=== PATIENT | female | born 1935 | race Caucasian/White ===

== ENCOUNTER 2017-03-16 12:51 | Emergency (ER) | payer MEDICARE ==
[2017-03-16] MEDS ORDERED: NORMAL SALINE 1000 ML 1,000 ML IV ONE (13:18)
[2017-03-16] MEDS ORDERED: ASPIRIN 81 MG TABLET, CHEWABLE PO ONE (13:20)
[2017-03-16] MEDS ORDERED: METOPROLOL TARTRATE PF/INJ 5 MG/5 ML SDV IV ONE (13:21)
--- NOTE | 2017-03-16 13:34 | ER Document Report ---
ED Respiratory Problem - General Chief Complaint: Chest Pain Stated Complaint: TIGHTNESS IN CHEST,SHORT OF BREATH Time Seen by Provider: 03/16/17 13:17 Notes: The patient is an 81-year-old female, past medical history A. fib, hyperlipidemia, dementia, presents with 1 day of mild shortness of breath. She did not take her Nebivolol this morning, but she is taking her Elqiuiis as directed. 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 Patient denies chest pain, palpitations, leg swelling, cough, nausea , vomiting, fevers, abdominal pain, back pain, numbness or tingling. TRAVEL OUTSIDE OF THE [place] IN LAST 30 DAYS: No - Related Data Allergies/Adverse Reactions: diltiazem [From Cardizem] Allergy (Verified 03/16/17 13:11) Penicillins Allergy (Verified 03/16/17 13:11) Past Medical History - General Information source: Patient - Social History Smoking Status: Never Smoker Family History: CAD - Past Medical History Cardiac Medical History: Reports: Hx Hypertension Renal/ Medical History: Denies: Hx Peritoneal Dialysis Past Surgical History: Reports: Hx Hysterectomy Review of Systems - Review of Systems Notes: REVIEW OF SYSTEMS: CONSTITUTIONAL: -fevers, -chills EENT: -eye pain, -difficulty swallowing, -nasal congestion CARDIOVASCULAR:-chest pain, -syncope. RESPIRATORY: -cough, +SOB GASTROINTESTINAL: -abdominal pain, -nausea, -vomiting, -diarrhea GENITOURINARY: -dysuria, -hematuria MUSCULOSKELETAL: -back pain, -neck pain SKIN: -rash or skin lesions. HEMATOLOGIC: -easy bruising or bleeding. LYMPHATIC: -swollen, enlarged glands. NEUROLOGICAL: -altered mental status or loss of consciousness, -headache, - neurologic symptoms PSYCHIATRIC: -anxiety, -depression. ALL OTHER SYSTEMS REVIEWED AND NEGATIVE. Physical Exam - Vital signs Vitals: Resp 20 03/16/17 13:30 - Notes Notes: PHYSICAL EXAMINATION: GENERAL: Well-appearing, well-nourished and in no acute distress. HEAD: Atraumatic, normocephalic. EYES: Pupils equal round and reactive to light, extraocular movements intact, sclera anicteric, conjunctiva are normal. ENT: nares patent, oropharynx clear without exudates. Moist mucous membranes. NECK: Normal range of motion, supple without lymphadenopathy LUNGS: Tachypnea. Dull breath sounds in B/L bases. No wheezes. HEART: Irregularly irregular rhythm, tachycardic ABDOMEN: Soft, nontender, normoactive bowel sounds. No guarding, no rebound. No masses appreciated. EXTREMITIES: Normal range of motion, no pitting or edema. No cyanosis. NEUROLOGICAL: Cranial nerves grossly intact. Normal speech, normal gait. Normal sensory and motor exams. PSYCH: Normal mood, normal affect. SKIN: Warm, Dry, normal turgor, no rashes or lesions noted. Course - Re-evaluation Re-evalutation: Patient found to be in A. fib with RVR on arrival to the emergency room. She did not take her nebivolol dose this morning and this was provided to her when she arrived. Patient is denying any chest pain (despite Triage notes) and is not having any palpitations. Her troponin and EKG do not show any evidence of acute coronary syndrome at this time. Because of patient's shortness of breath and mild tachypnea, a CTA was ordered, which did not show any evidence of PE. She does have bibasilar pleural effusions, worse on the right. She received 200 mL of IVF before the results of the CT scan, so the rest of the fluids were stopped. She is satting 96% on RA. Spoke to patient and her 2 daughters and encouraged admission due to her age and comorbidities for further evaluation and treatment of her pleural effusions and A. fib, but patient would like to follow-up with her commercial glazier/PMD tomorrow when she arrives back to [place]. Patient is currently AAO 3 and has the capacity to make her own decisions. Her two daughters, who are her POA, also took part in the decision-making and understands the risks of leaving AGAINST MEDICAL ADVICE, including , heart attack or hypoxia. Pt and two daughters were encouraged to return immediately to the emergency room for any worsening shortness of breath or at any time for further evaluation and treatment. Instructed her to continue the Eliquis and return immediately to the emergency room if she has any chest pain or worsening shortness of breath. The daughter said that they will call her doctors in [place] tomorrow morning to be seen quickly. - Vital Signs Vital signs: Temp Pulse Resp BP Pulse Ox 20 03/16/17 13:30 - Laboratory Result Diagrams: 03/16/17 13:25 03/16/17 13:25 Laboratory results interpreted by me: 03/16/17 03/16/17 03/16/17 13:25 13:25 13:25 RBC 3.59 L MCV 102 H Lymphocytes % 12.5 L D-Dimer BUN 21 H Est GFR (Non-Af Amer) 53 L Glucose 146 H AST 62 H ALT 67 H NT-Pro-B Natriuret Pep 4030 H 03/16/17 13:25 RBC MCV Lymphocytes % D-Dimer 1.58 H BUN Est GFR (Non-Af Amer) Glucose AST ALT NT-Pro-B Natriuret Pep - Diagnostic Test Radiology reviewed: Image reviewed, Reports reviewed Radiology results interpreted by me: CXR: BASILAR ATELECTASIS WITH BILATERAL PLEURAL EFFUSIONS. CTA Chest: 1. NORMAL CTA OF THE CHEST. NO PULMONARY EMBOLI. 2. MODERATE BILATERAL PLEURAL EFFUSIONS, RIGHT GREATER THAN LEFT. SCATTERED ATELECTASIS. - EKG Interpretation by Me EKG shows normal: QRS Complexes, ST-T Waves Rate: Tachycardia Rhythm: A.Fib When compared to previous EKG there are: Changes noted - Sinus rhythm on 2015 EKG Discharge - Discharge Clinical Impression: Atrial fibrillation with rapid ventricular response, Pleural effusion Dyspnea Qualifiers: Dyspnea type: shortness of breath Qualified Code(s): R06.02 - Shortness of breath Condition: Stable Disposition: AGAINST MEDICAL ADVICE Additional Instructions: Atrial Fibrillation Atrial fibrillation is an abnormal heart rhythm, caused by irregular electrical circuits in the upper heart chamber. It can be caused by heart valve disease, hardening of the arteries, or metabolic problems such as thyroid disease, or may occur without a clear cause. Atrial fibrillation may occur only occasionally, or may be chronic. Atrial fibrillation often results in a very fast heart rate, with palpitations, lightheadedness, and shortness of breath. Treatment is to slow the abnormally fast rate, and to convert the rhythm back to normal, if possible. Many patients stay in atrial fibrillation for years without symptoms or complications. Your doctor will decide whether you can be converted back to a normal heart rhythm. Contact the doctor or emergency medical system at once if you develop chest pain, shortness of breath, or severe lightheadedness, or if you develop any disturbance of consciousness, problems with speech, or localized weakness. SHORTNESS OF BREATH OR DYSPNEA: You were evaluated for shortness of breath, or dyspnea. Dyspnea has many causes, and some are more serious than others. Sometimes it's impossible to diagnose the cause of dyspnea with the tests that are available on an emergency basis. Based on our evaluation today, you do not need hospitalization now. We found no evidence of pneumonia, collapsed lung, blood clots in the lung, tumors , or heart failure. Causes of non-specific dyspnea can include asthma or bronchospasm, hyperventilation, emotional distress, heart disease, emphysema, fibrosis of the lung, and stiffness of the chest wall. In healthy individuals with a single episode, it's sometimes reasonable to do nothing but wait to see if the problem occurs again. Additional tests used to evaluate dyspnea can include cardiac stress testing, echocardiography, pulmonary function testing, CAT scan of the chest, bronchoscopy or pulmonary biopsy. Return if shortness of breath persists or worsens, or if you develop chest pain, fever, cough, confusion, or fainting. NORMAL EXAM AND WORKUP: At this time, your examination and workup show no significant abnormality. No significant abnormal physical findings were noted. All laboratory, EKG, and imaging (x-ray, CT scans, ultrasound) studies that were ordered show no significant abnormality. Although your examination and all studies that were ordered showed no significant abnormal finding, there are no examinations and no studies that are 100% accurate. There is always the possibility that some abnormality could exist and not be detected with physical examination or within the limits and capabilities of laboratory and other studies. You should return or follow up as you were instructed on your visit today for further evaluation if your symptoms do not resolve. FOLLOW-UP CARE: If you have been referred to a physician for follow-up care, call the physician s office for an appointment as you were instructed or within the next two days. If you experience worsening or a significant change in your symptoms, notify the physician immediately or return to the Emergency Department at any time for re-evaluation. Pleural Effusion You have a pleural effusion. A pleural effusion is fluid in the space between your lung and chest wall. This can be caused by pleurisy (inflammation of the lung lining), pneumonia, heart disease, pulmonary embolism (blood clots in the lung), or chest injury. It may also occur with any condition that results in severe fluid retention, such as kidney or liver failure. Occasionally the effusion is due to tumor or other serious conditions. A pleural effusion may not cause any symptoms at all. But often, there is sharp pain with breathing. A large effusion can make you short of breath. If we know what caused a pleural effusion, there's usually no need for further testing. In these cases, we treat the underlying illness. In mysterious cases, a sample of the fluid can show what caused the effusion. This sample is obtained by putting a needle between the ribs. If the effusion is large enough to cause shortness of breath, we can remove it through the needle. Follow-up is important. Be sure to see the doctor for further care. Call or return if you become very short of breath, have increasing pain, or develop a new fever.
[2017-03-16 13:47] LABS: ABSOLUTE BASOPHILS # (AUTO) 0.1 10^3/uL (0.0-0.2); ABSOLUTE EOSINOPHILS # (AUTO) 0.1 10^3/uL (0.0-0.6); ABSOLUTE LYMPHOCYTES (AUTO) 0.7 10^3/uL (0.5-4.7); ABSOLUTE MONOCYTES (AUTO) 0.4 10^3/uL (0.1-1.4); ABSOLUTE NEUT (AUTO) 4.3 10^3/uL (1.7-8.2); BASOPHILS % (AUTO) 0.9 % (0-2); EOSINOPHILS % (AUTO) 2.1 % (0-6); HEMATOCRIT 36.7 % (36.0-47.0); HGB HCT DIFFERENCE -0.7; LYMPHOCYTES % (AUTO) 12.5 % (13-45); MEAN CORPUSCULAR HEMOGLOBIN 33.4 pg (27.0-33.4); MEAN CORPUSCULAR HGB CONC 32.7 g/dL (32.0-36.0); MEAN CORPUSCULAR VOLUME 102 fl (80-97); MONOCYTES % (AUTO) 7.4 % (3-13); RED BLOOD COUNT 3.59 10^6/uL (3.72-5.28); RED CELL DISTRIBUTION WIDTH 13.8 % (11.5-14.0); SEGMENTED NEUTROPHILS % (AUTO) 77.1 % (42-78); WHITE BLOOD COUNT 5.6 10^3/uL (4.0-10.5)
[2017-03-16 13:49] LABS: PROTHROMBIN TIME 14.6 SEC (11.4-15.4)
[2017-03-16 13:59] LABS: ALANINE AMINOTRANSFERASE 67 U/L (9-52); ALBUMIN 4.3 g/dL (3.5-5.0); ALKALINE PHOSPHATASE 112 U/L (38-126); ANION GAP 13 (5-19); ASPARTATE AMINO TRANSFERASE 62 U/L (14-36); BILIRUBIN,DIRECT 0.3 mg/dL (0.0-0.4); BILIRUBIN,TOTAL 0.9 mg/dL (0.2-1.3); BLOOD UREA NITROGEN 21 mg/dL (7-20); CALCIUM 9.7 mg/dL (8.4-10.2); CARBON DIOXIDE 26 mmol/L (22-30); CHLORIDE 103 mmol/L (98-107); CREATINE KINASE 76 U/L (30-135); CREATININE RESULT 1.01 mg/dL (0.52-1.25); GLUCOSE 146 mg/dL (75-110); LIPASE 119.8 U/L (23-300); POTASSIUM 4.1 mmol/L (3.6-5.0); TOTAL PROTEIN 7.7 g/dL (6.3-8.2)
--- NOTE | 2017-03-16 14:05 | EKG REPORT ---
SEVERITY:- ABNORMAL ECG - ATRIAL FIBRILLATION, V-RATE 78-156 BORDERLINE PROLONGED QT INTERVAL : Confirmed by: Juan A Daugherty MD 16-Mar-2017 14:04:49
[2017-03-16 14:11] LABS: TROPONIN I < 0.012 ng/mL
--- NOTE | 2017-03-16 14:11 | RADIOLOGY REPORT (SQ) ---
EXAM DESCRIPTION: CHEST SINGLE VIEW COMPLETED DATE/TIME: 03/16/2017 2:03 pm REASON FOR STUDY: chest pain COMPARISON: 06/19/2016. EXAM PARAMETERS: NUMBER OF VIEWS: One view. TECHNIQUE: Single frontal radiographic view of the chest acquired. RADIATION DOSE: NA LIMITATIONS: None. FINDINGS: LUNGS AND PLEURA: Mild basilar atelectasis with bilateral pleural effusions. MEDIASTINUM AND HILAR STRUCTURES: No masses. Contour normal. HEART AND VASCULAR STRUCTURES: Mild cardiac enlargement. BONES: No acute findings. HARDWARE: None in the chest. OTHER: No other significant finding. IMPRESSION: BASILAR ATELECTASIS WITH BILATERAL PLEURAL EFFUSIONS. TECHNICAL DOCUMENTATION: JOB ID: [id number]
--- NOTE | 2017-03-16 14:45 | RADIOLOGY REPORT (SQ) ---
EXAM DESCRIPTION: CTA CHEST COMPLETED DATE/TIME: 03/16/2017 2:35 pm REASON FOR STUDY: tachycardia, SOB, tachypnea COMPARISON: None. TECHNIQUE: CT scan of the chest performed using helical scanning technique with dynamic intravenous contrast injection. Images reviewed with lung, soft tissue and bone windows. Reconstructed coronal and sagittal MPR images reviewed. Additional 3 dimensional post-processing performed to develop Maximal Intensity Projection images (TX P). All images stored on PACS. All CT scanners at this facility use dose modulation, iterative reconstruction, and/or weight based d osing when appropriate to reduce radiation dose to as low as reasonably achievable (ALARA). [facility]: Dose Right [facility]: CareDose [facility]: Dose Right [facility]: Teradose 4D [facility]: Mint Labs CONTRAST TYPE AND DOSE: 57 mL Isovue 370- low osmolar. RENAL FUNCTION: BUN 21 creatinine 1.01. RADIATION DOSE: Up-to-date CT equipment and radiation dose reduction techniques were employed. CTDIv ol: 14.3 - 23.2 mGy. DLP: 506 mGy-cm. . LIMITATIONS: None. FINDINGS: LUNGS AND PLEURA: Moderate bilateral pleural effusions, right greater than left. Scattere d atelectasis. AORTA AND GREAT VESSELS: No aneurysm or dissection. HEART: No pericardial effusion. PULMONARY ARTERIES: No emboli visualized in the main pulmonary arteries or the segmental branches. HILAR AND MEDIASTINAL STRUCTURES: No identified masses or abnormal nodes. HARDWARE: None in the chest. UPPER ABDOMEN: No significant findings. Limited exam. THYROID AND OTHER SOFT TISSUES: No masses. No adenopathy. BONES: No acute or significant finding. 3D MIPS: Confirm above findings. OTHER: No other significant finding. IMPRESSION: 1. NORMAL CTA OF THE CHEST. NO PULMONARY EMBOLI. 2. MODERATE BILATERAL PLEURAL EFFUSIONS, RIGHT GREATER THAN LEFT. SCATTERED ATELECTASIS. TECHNICAL DOCUMENTATION: JOB ID: [id number] Quality ID # [id number]: Final reports with documentation of one or more dose reduction techniques (e.g., Au tomated exposure control, adjustment of the mA and/or kV according to patient size, use of iterative reconstruction technique) 2010 [employer]- All Rights Reserved
[2017-03-16 15:18] VITALS: BP 122/75
--- NOTE | 2017-03-16 22:01 | EKG REPORT ---
SEVERITY:- ABNORMAL ECG - SINUS TACHYCARDIA WITH FREQ. PACS , PRECURSOR TO A FIB. : Confirmed by: Juan A Daugherty MD 16-Mar-2017 22:00:23
--- NOTE | 2017-03-17 12:19 | EKG REPORT ---
SEVERITY:- ABNORMAL ECG - ATRIAL FIBRILLATION, V-RATE 78-167 BORDERLINE PROLONGED QT INTERVAL : Confirmed by: Aman Paul 17-Mar-2017 12:18:10
== END 2017-03-16 15:17 | disposition left against medical advice (07) ==
LOC: ER 12:51
DX: I48.91 Unspecified atrial fibrillation (principal); J90 Pleural effusion, not elsewhere classified; R06.02 Shortness of breath; R07.9 Chest pain, unspecified; E78.5 Hyperlipidemia, unspecified; F03.90 Unspecified dementia, unspecified severity, without behavioral disturbance, psychotic disturbance, mood disturbance, and anxiety
CPT/HCPCS: 93005; 99285; 96374; 36415; 82550; 83690; 85025; 85610; 85730; 80053; 84484; 85379; 83880; 71010; 71275; 93010; A9270; J3490; J7030

== ENCOUNTER 2017-03-17 09:54 | Inpatient (IN) | payer MEDICARE ==
--- NOTE | 2017-03-17 10:19 | ER Document Report ---
ED Respiratory Problem - General Mode of Arrival: Wheelchair Information source: Patient, Relative - patients daugther TRAVEL OUTSIDE OF THE [place] IN LAST 30 DAYS: No - HPI Patient complains to provider of: Short of breath Duration: Worse/persistent Associated symptoms: Other - see above <CJ RED - Last Filed: 03/17/17 10:48> <BEULAHPATRICA Peña - Last Filed: 03/17/17 11:52> - General Chief Complaint: Shortness Of Breath Stated Complaint: SHORTNESS OF BREATH Time Seen by Provider: 03/17/17 10:05 Notes: Patient is an 81 year old female who presents to the ED with complaints of SOB. Patient was seen it the ED yesterday and left AMA with A-Fib and a pleural effusion. 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 Patients daughter tried getting her into her PCP in [place], patient does not have a PCP in [place]. Patients daughter reports that the paints SOB is worse than normal and is not only associated with exertion. Patient was first diagnosed with A Fib in June 2016, 2 weeks ago she had her medication changed by her Lock Maintenance Supervisor in [place]. No other concerns or complaints at this time. ( CJ RED) - Related Data Allergies/Adverse Reactions: diltiazem [From Cardizem] Allergy (Verified 03/17/17 09:55) Penicillins Allergy (Verified 03/17/17 09:55) Past Medical History - General Information source: Patient, Relative - patients daughter - Social History Smoking Status: Former Smoker Chew tobacco use (# tins/day): No Frequency of alcohol use: wine at night Drug Abuse: None Family History: CAD Patient has suicidal ideation: No Patient has homicidal ideation: No - Past Medical History Cardiac Medical History: Reports: Hx Atrial Fibrillation, Hx Hypertension Renal/ Medical History: Denies: Hx Peritoneal Dialysis Past Surgical History: Reports: Hx Hysterectomy <CJ RED - Last Filed: 03/17/17 10:48> Review of Systems - Review of Systems Constitutional: No symptoms reported EENT: No symptoms reported Cardiovascular: No symptoms reported Respiratory: See HPI, Short of breath Gastrointestinal: No symptoms reported Genitourinary: No symptoms reported Female Genitourinary: No symptoms reported Musculoskeletal: No symptoms reported Skin: No symptoms reported Hematologic/Lymphatic: No symptoms reported Neurological/Psychological: No symptoms reported <CJ RED - Last Filed: 03/17/17 10:48> Physical Exam - General General appearance: Alert, Other - confused, consistent with baseline - HEENT Head: Normocephalic, Atraumatic Eyes: Normal Extraocular movements intact: Yes Pupils: PERRL - Respiratory Breath sounds: Rales - basular - Cardiovascular Rhythm: Irregularly irregular - Extremities General upper extremity: Normal inspection, Normal ROM General lower extremity: Normal inspection, Other - depended cyanosis in lower extremities bilaterally. No: Edema - Neurological Cognition: Confused - consistent with baseline - Psychological Associated symptoms: Confused - consistent with baseline - Skin Skin Temperature: Warm Skin Moisture: Dry Skin Color: Cyanotic - depended in lower extremities bilaterally <CJ RED - Last Filed: 03/17/17 10:48> Course - Consults Dr. Cool Time consulted: 10:46 Dr. Snyder Time consulted: 10:48 <CJ RED - Last Filed: 03/17/17 10:48> - Laboratory Result Diagrams: 03/17/17 11:20 03/17/17 11:20 - Diagnostic Test Radiology reviewed: Reports reviewed - CTA of the chest and x-ray reviewed from yesterday's emergency department visit. - EKG Interpretation by Me Rate: Tachycardia Rhythm: A.Fib - A. fib with RVR, normal QRS, nonspecific ST T-wave changes. <PATRICA LAW - Last Filed: 03/17/17 11:52> - Vital Signs Vital signs: Temp Pulse Resp BP Pulse Ox 97.5 F 70 18 145/94 H 95 03/17/17 09:55 03/17/17 09:55 03/17/17 09:55 03/17/17 09:55 03/17/17 09:55 - Laboratory Laboratory results interpreted by me: 03/17/17 03/17/17 11:20 11:20 RBC 3.39 L Hgb 11.3 L Hct 34.6 L MCV 102 H RDW 14.1 H Lymphocytes % 10.6 L Est GFR (Non-Af Amer) 56 L - Consults Dr. Cool Reason for consultation: 03/17/17 10:[address] Cool recommended calling Dr. Snyder. (CJ RED) Dr. Snyder Reason for consultation: 03/17/17 10:48 Discussed patient. Patient is accepted for admission. (CJ RED) Discharge <CJ RED - Last Filed: 03/17/17 10:48> - Discharge Admitting Provider: Hospitalist Unit Admitted: [facility] <PATRICA LAW - Last Filed: 03/17/17 11:52> - Discharge Clinical Impression: Atrial fibrillation with rapid ventricular response, Pleural effusion Condition: Fair Disposition: ADMITTED INPATIENT Scribe Attestation: 03/17/17 11:46 I personally performed the services provided in the documentation, reviewed and edited the documentation which was dictated to the scribe in my presence. It accurately records my words and actions. NATI (PATRICA LAW) Scribe Documentation - Scribe Written by Uri:: uri Leal, 03/17/2017, 1020 acting as scribe for DrDelano:: Beulah <CJ RED - Last Filed: 03/17/17 10:48>
[2017-03-17] MEDS ORDERED: FUROSEMIDE INJ/PF 20 MG/2 ML SDV IV ONE (10:50)
[2017-03-17 11:28] LABS: ABSOLUTE EOSINOPHILS # (AUTO) 0.2 10^3/uL (0.0-0.6); ABSOLUTE LYMPHOCYTES (AUTO) 0.6 10^3/uL (0.5-4.7); ABSOLUTE MONOCYTES (AUTO) 0.5 10^3/uL (0.1-1.4); ABSOLUTE NEUT (AUTO) 4.6 10^3/uL (1.7-8.2); BASOPHILS % (AUTO) 0.8 % (0-2); EOSINOPHILS % (AUTO) 2.7 % (0-6); HEMATOCRIT 34.6 % (36.0-47.0); HEMOGLOBIN 11.3 g/dL (12.0-15.5); HGB HCT DIFFERENCE -0.7; LYMPHOCYTES % (AUTO) 10.6 % (13-45); MEAN CORPUSCULAR HEMOGLOBIN 33.4 pg (27.0-33.4); MEAN CORPUSCULAR HGB CONC 32.7 g/dL (32.0-36.0); MEAN CORPUSCULAR VOLUME 102 fl (80-97); MONOCYTES % (AUTO) 8.6 % (3-13); RED BLOOD COUNT 3.39 10^6/uL (3.72-5.28); RED CELL DISTRIBUTION WIDTH 14.1 % (11.5-14.0); SEGMENTED NEUTROPHILS % (AUTO) 77.3 % (42-78); WHITE BLOOD COUNT 5.9 10^3/uL (4.0-10.5)
[2017-03-17] MEDS ORDERED: MAGNESIUM HYDROXIDE SUSP 30 ML UDCUP PO PRN (11:39)
[2017-03-17] MEDS ORDERED: ONDANSETRON HCL INJ/PF 4 MG/2 ML SDV IV PRN (11:39)
[2017-03-17 11:44] LABS: ANION GAP 11 (5-19); BLOOD UREA NITROGEN 17 mg/dL (7-20); CALCIUM 9.6 mg/dL (8.4-10.2); CARBON DIOXIDE 27 mmol/L (22-30); CHLORIDE 105 mmol/L (98-107); CREATININE RESULT 0.96 mg/dL (0.52-1.25); GLUCOSE 90 mg/dL (75-110); POTASSIUM 4.2 mmol/L (3.6-5.0); SODIUM 143.2 mmol/L (137-145)
[2017-03-17] MEDS ORDERED: NITROGLYCERIN 2.5 MG (0.1 MG/HR) PATCH.TD24 TD SCH (11:45)
[2017-03-17] MEDS ORDERED: METOPROLOL SUCCINATE 25 MG TAB.SR.24H PO ONE (12:30)
[2017-03-17 12:41] LABS: MAGNESIUM 2.1 mg/dL (1.6-2.3)
[2017-03-17] MEDS: NITROGLYCERIN 2.5 MG (0.1 MG/HR) PATCH.TD24 TD SCH (13:41)
--- NOTE | 2017-03-17 15:35 | PDOC H&P ---
History of Present Illness Admission Date/PCP: 03/17/17 11:48 Patient complains of: SOA for 2days History of Present Illness: FRANCOISE DANG is a 81 year old female with Alzheimer's Dementia and chronic afib, among other things, presents to the ED for the second day in a row with progressive SOA and rapid HR. she had been in NSR until a couple of weeks ago when she slipped back into afib and was changed from ACEi to Bystolic by her PCP in [place] to try to regain rate control but with only minimal success it would seem. Part of the problem is that she splits her time between a daughter here locally and one in [place] with primary MDs and cardiologists in both places until yesterday when she was seen in our ED, referred for admission but refused and left AMA electing to see her MD's in [place] instead. Unfortunately they told her she was no longer a patient and needed to return to the ED for treatment or return to [place]. So on re-evaluation she remains in Afib with mild RVR and found to have mod R>L pleural effusions with compressive atelectasis accounting for RA sats with minimal exertion of <88% and once again referred for admission. She denies chest pain but describes a heaviness in her chest "like I can't get enough air in when I need it". she denies palpitations, wheezing, cough with phlegm, sick contacts, n/v/d, melena, orthopnea or PND. Past Medical History Cardiac Medical History: Reports: Atrial Fibrillation, Hypertension Pulmonary Medical History: Reports: None Neurological Medical History: Reports: Ischemic CVA, Other - dementia Past Surgical History Past Surgical History: Reports: Hysterectomy Social History Information Source: Relative Smoking Status: Former Smoker Frequency of Alcohol Use: Social Hx Recreational Drug Use: No Hx Prescription Drug Abuse: No - Advance Directive Resuscitation Status: Full Code Family History Family History: CAD Parental Family History Reviewed: Yes Children Family History Reviewed: Yes Sibling(s) Family History Reviewed.: Yes Medication/Allergy Home Medications: Albuterol Sulfate [Proair HFA] 2 puff IH Q6HP PRN 03/17/17 Apixaban [Eliquis 2.5 mg Tablet] 2.5 mg PO Q12 03/17/17 Atorvastatin Calcium [Lipitor 40 mg Tablet] 40 mg PO DAILY 03/17/17 Citalopram Hydrobromide [Celexa 20 mg Tablet] 20 mg PO DAILY 03/17/17 Memantine HCl [Namenda 10 mg Tablet] 10 mg PO Q12 03/17/17 Nebivolol HCl [Bystolic 5 mg Tablet] 5 mg PO DAILY 03/17/17 Rivastigmine Tartrate [Rivastigmine] 4.5 mg PO BID 03/17/17 Allergies/Adverse Reactions: diltiazem [From Cardizem] Allergy (Verified 03/17/17 09:55) Penicillins Allergy (Verified 03/17/17 09:55) Review of Systems All systems: reviewed and no additional remarkable complaints except as stated - all systems reviewed, see HPI, remaining systems negative Physical Exam Vital Signs: Temp Pulse Resp BP Pulse Ox 97.5 F 70 18 145/94 H 95 03/17/17 09:55 03/17/17 09:55 03/17/17 09:55 03/17/17 09:55 03/17/17 09:55 General appearance: PRESENT: no acute distress, thin, well-developed, well- nourished Head exam: PRESENT: atraumatic, normocephalic Eye exam: PRESENT: EOMI. ABSENT: conjunctival injection, scleral icterus Mouth exam: PRESENT: dry mucosa, neck supple. ABSENT: moist Neck exam: PRESENT: full ROM. ABSENT: JVD, lymphadenopathy, meningismus, tenderness Respiratory exam: PRESENT: decreased breath sounds - bilat bases, rales - bases. ABSENT: accessory muscle use, rhonchi, unlabored, wheezes Cardiovascular exam: PRESENT: irregular rhythm, tachycardia - rate 110's for me Pulses: PRESENT: normal radial pulses, normal dorsalis pedis pul Vascular exam: PRESENT: normal capillary refill GI/Abdominal exam: PRESENT: normal bowel sounds, soft, other - no HPJ reflux. ABSENT: tenderness Extremities exam: PRESENT: pedal edema - trace at the ankles Musculoskeletal exam: PRESENT: ambulatory, full ROM Neurological exam: PRESENT: alert, awake, oriented to person, oriented to place , oriented to situation. ABSENT: oriented to time, motor sensory deficit Psychiatric exam: PRESENT: appropriate affect, normal mood Focused psych exam: ABSENT: flight of ideas, pressured speech, psychomotor agitation Skin exam: PRESENT: dry, warm Results Laboratory Results: 03/17/17 11:20 03/17/17 11:20 MCV 102 fl (80-97) H 03/17/17 11:20 MCH 33.4 pg (27.0-33.4) 03/17/17 11:20 MCHC 32.7 g/dL (32.0-36.0) 03/17/17 11:20 RDW 14.1 % (11.5-14.0) H 03/17/17 11:20 Seg Neutrophils % 77.3 % (42-78) 03/17/17 11:20 Lymphocytes % 10.6 % (13-45) L 03/17/17 11:20 Monocytes % 8.6 % (3-13) 03/17/17 11:20 Eosinophils % 2.7 % (0-6) 03/17/17 11:20 Basophils % 0.8 % (0-2) 03/17/17 11:20 Absolute Neutrophils 4.6 10^3/uL (1.7-8.2) 03/17/17 11:20 Absolute Lymphocytes 0.6 10^3/uL (0.5-4.7) 03/17/17 11:20 Absolute Monocytes 0.5 10^3/uL (0.1-1.4) 03/17/17 11:20 Absolute Eosinophils 0.2 10^3/uL (0.0-0.6) 03/17/17 11:20 Absolute Basophils 0.0 10^3/uL (0.0-0.2) 03/17/17 11:20 Chloride 105 mmol/L (98-107) 03/17/17 11:20 Carbon Dioxide 27 mmol/L (22-30) 03/17/17 11:20 Anion Gap 11 (5-19) 03/17/17 11:20 Est GFR ( Amer) > 60 (>60) 03/17/17 11:20 Est GFR (Non-Af Amer) 56 (>60) L 03/17/17 11:20 Glucose 90 mg/dL (75-110) 03/17/17 11:20 Calcium 9.6 mg/dL (8.4-10.2) 03/17/17 11:20 Magnesium 2.1 mg/dL (1.6-2.3) 03/17/17 11:20 TSH 2.46 uIU/mL (0.47-4.68) 03/17/17 11:20 03/17/17 03/17/17 03/17/17 11:20 11:20 11:20 Creatine Kinase 78 CK-MB (CK-2) 1.69 Troponin I < 0.012 Impressions: CTA chest reviewed, no PE but at least moderate R>L pleural effusions with compressive atelectasis Status: Image reviewed by me Assessment & Plan - Diagnosis (1) Acute hypoxemic respiratory failure Is this a current diagnosis for this admission?: YesPlan: admit for supplemental O2 and diuresis of fluid as her condition will allow. (2) Atrial fibrillation with RVR Is this a current diagnosis for this admission?: YesPlan: stop bystolic and start toprol xl at 25mg/bid which is what we used with success during her last hospitalization 06/2016 per my reviewe of the old record. continue eliquis unless they elect to pursue thoracentesis. (3) Pleural effusion Is this a current diagnosis for this admission?: YesPlan: last echo 06/2016 shows well preserved EF, grade 2/4 diastolic dysnfxn, mod AR, mild TR, no MR and no pericardial effusion. will repeat today and monitor for changes. I discussed at length the risk and benefit for thoracentesis, which will also require holding eliquis, but family is undecided while the patient is not at all enthusiastic about proceeding. so we elected to treat with diuretics for now, they will discuss and let us know how they want to proceed. according to [employer], for low bleeding risk procedures eliquis needs to be held for one full day (miss 2 doses) prior to procedure and can be resumed 24hrs following. (4) Alzheimer's dementia Qualifiers: Alzheimer's disease onset: unspecified onset Dementia behavioral disturbance: without behavioral disturbance Qualified Code(s): G30.9 - Alzheimer's disease, unspecified; F02.80 - Dementia in other diseases classified elsewhere without behavioral disturbance Is this a current diagnosis for this admission?: YesPlan: continue home regimen; no hx of sundowning per the daughter (5) Full code status Is this a current diagnosis for this admission?: Yes (6) History of CVA (cerebrovascular accident) Is this a current diagnosis for this admission?: YesPlan: no residual deficits - Time Time Spent: Greater than 70 Minutes - 2 that time spent in consultation with the daughter and pt Medications reviewed and adjusted accordingly: Yes Anticipated discharge: Home Within: within 72 hours - Inpatient Certification Based on my medical assessment, after consideration of the patient's comorbidities, presenting symptoms, or acuity I expect that the services needed warrant INPATIENT care.: Yes I certify that my determination is in accordance with my understanding of Medicare's requirements for reasonable and necessary INPATIENT services [42 CFR 412.3e].: Yes Medical Necessity: Failure to Improve With Outpatient Therapy, Significant Comorbidiites Make Outpatient Treatment Too Risky, Need Close Monitoring Due to Risk of Patient Decompensation, Need For Continuous Telemetry Monitoring, Risk of Complication if Not Cared For in Hospital
[2017-03-17] MEDS ORDERED: RIVASTIGMINE TARTRATE 4.5 MG PO SCH (18:00)
[2017-03-17] MEDS: RIVASTIGMINE TARTRATE 1.5 MG CAPSULE PO SCH (18:21)
[2017-03-17] MEDS: METOPROLOL SUCCINATE 25 MG TAB.SR.24H PO SCH (21:13)
[2017-03-17] MEDS: MEMANTINE HCL 10 MG TABLET PO SCH (21:13)
[2017-03-17] MEDS: FUROSEMIDE INJ/PF 20 MG/2 ML SDV IV SCH (21:14)
[2017-03-17] MEDS: ATORVASTATIN CALCIUM 40 MG TABLET PO SCH (21:14)
[2017-03-17] MEDS ORDERED: APIXABAN 2.5 MG TABLET PO SCH (22:00)
[2017-03-18] MEDS: ACETAMINOPHEN 325 MG TABLET PO PRN ×2 (02:30→09:46)
[2017-03-18 02:32] LABS: ANION GAP 9 (5-19); BLOOD UREA NITROGEN 18 mg/dL (7-20); CARBON DIOXIDE 30 mmol/L (22-30); CHLORIDE 102 mmol/L (98-107); CREATININE RESULT 0.95 mg/dL (0.52-1.25); GLUCOSE 110 mg/dL (75-110); POTASSIUM 3.5 mmol/L (3.6-5.0); SODIUM 140.5 mmol/L (137-145)
[2017-03-18 02:45] LABS: CREATINE KINASE MB 1.13 ng/mL (<4.55)
[2017-03-18 02:49] LABS: TROPONIN I < 0.012 ng/mL
[2017-03-18] MEDS: FUROSEMIDE INJ/PF 20 MG/2 ML SDV IV SCH (09:44)
[2017-03-18] MEDS: MEMANTINE HCL 10 MG TABLET PO SCH ×2 (09:45→21:10)
[2017-03-18] MEDS: METOPROLOL SUCCINATE 25 MG TAB.SR.24H PO SCH ×2 (09:45→21:10)
[2017-03-18] MEDS: LISINOPRIL 5 MG TABLET PO SCH (09:46)
[2017-03-18] MEDS: CITALOPRAM HYDROBROMIDE 20 MG TABLET PO SCH (09:46)
[2017-03-18] MEDS: RIVASTIGMINE TARTRATE 1.5 MG CAPSULE PO SCH ×2 (09:47→18:17)
[2017-03-18] MEDS ORDERED: LABETALOL HCL INJ 20 MG/4 ML DISP.SYRIN IV PRN (11:06)
[2017-03-18] MEDS ORDERED: HYDRALAZINE HCL INJ/PF 20 MG/1 ML SDV IV PRN (11:09)
[2017-03-18] MEDS ORDERED: FUROSEMIDE INJ/PF 20 MG/2 ML SDV IV SCH (11:15)
[2017-03-18] MEDS ORDERED: FUROSEMIDE INJ/PF 20 MG/2 ML SDV IV ONE (12:00)
[2017-03-18] MEDS: NITROGLYCERIN 2.5 MG (0.1 MG/HR) PATCH.TD24 TD SCH (12:29)
[2017-03-18] MEDS: LEVALBUTEROL HCL NEB 0.63 MG/3 ML AMPUL NEB SCH ×4 (12:43→23:50)
--- NOTE | 2017-03-18 12:57 | Physician Advisory Note ---
Physician Advisor ProgressNote .: Pursuant to the plan for [facility], I have reviewed the medical record for this patient. Physician Advisor Statement: Please consider documentin. "Acute on chronic diastolic CHF" 2. "I am concerned about pt's ." (Medical necessity) Status review: 81yo w/persistent Afib, HTN, Alz Dementia, ischmeic CVA without resid deficits, nl EF but gr 2/4 diast dysfn & mod AR in 2016, 2 sets of PCPs/CArdiologists due to splitting time in 2 states (2 daughters) present w/SOB>usual. Now released from practice in [place]. Had had change Rx by lost charge card clerk 2 wks before. Confusion baseline. HR 70-103-120s x hrs, RR18-33, then persistently 20s for hrs, BP 145/94. WBC 5.9, Hgb 11.3, CXR w/mod R>L pleural effusions w/ compressive atelectasis. BNP was 4030 on 03/16 when seen in ED & left AMA. (+)sats <88% w/minimal exertion per admitting attending, w/chest heaviness, dry mucosae, trace ankle edema. ED gave Lasix 20mg IV x1. Attending gave Lasix 20mg IV q12h, ordered ECHO, f/u labs thru 03/19, daily wts, I/Os, O2. Pt has shown recurrent tachycardia & hypoxemia 03/18 AM, sat 89% RA at 03:17. Attending has increased Lasix to 40mg q12h IV, added prn IV hydralazine, IV labetolol, & Xopanex, which indicates pt's sx have not adequately improved. Increasing Lasix, with K already worse at 3.5, is likely to drop K & Mag further , which may further encourage Afib RVR. Appropriate for Inpt status. CK
--- NOTE | 2017-03-18 13:54 | PDOC PROGRESS REPORT ---
Subjective Progress Note for:: 03/18/17 Subjective:: Follow-up visit for Keyla ma with RVR resulting in acute heart failure. Patient was seen at the bedside along with her 2 daughters. We had a very detailed discussion about the pathophysiology, treatment options, prognosis for Keyla ma with RVR as well as heart failure. The patient states that she feels better but her daughters insist that she is no better than what she was when she came in yesterday. They tell me that she is short of breath whenever she gets up and walks to the bathroom. The patient does admit to this after the fact. Her daughter states that she is complained of chest tightness as well. Confirms this. Physical Exam Vital Signs: Temp Pulse Resp BP Pulse Ox 98.3 F 87 16 115/78 93 03/18/17 11:03 03/18/17 11:03 03/18/17 11:03 03/18/17 11:03 03/18/17 11:03 Intake & Output 03/17/17 03/18/17 03/19/17 06:59 06:59 06:59 Intake Total 474 Balance 474 Weight 47.7 kg General: This is a well-developed and nourished appearing elderly frail- appearing white female resting in bed currently in no acute distress Heart: Tachycardic. Irregular rhythm. On the monitor the patient is in obvious A. fib with a heart rate of 103. No gallops or rubs. 1 to 2/6 systolic ejection murmur. Lungs: Bibasilar crackles extending care home up the lung. Worse on the right than the left. Abdomen: Soft, nontender, nondistended. Extremities: No clubbing cyanosis or edema. Peripheral pulses Neurologic: She is awake, and alert. CN are grossly intact Results Laboratory Results: 03/18/17 02:00 03/18/17 02:00 Sodium 140.5 Potassium 3.5 L Chloride 102 Carbon Dioxide 30 Anion Gap 9 BUN 18 Creatinine 0.95 Est GFR ( Amer) > 60 Est GFR (Non-Af Amer) 56 L Glucose 110 Calcium 9.0 03/17/17 03/17/17 03/17/17 16:53 16:53 20:00 Creatine Kinase 68 CK-MB (CK-2) 1.41 Troponin I < 0.012 NT-Pro-B Natriuret Pep 03/18/17 03/18/17 02:00 02:00 Creatine Kinase 52 CK-MB (CK-2) 1.13 Troponin I < 0.012 NT-Pro-B Natriuret Pep 3350 H Assessment & Plan - Diagnosis (1) Acute hypoxemic respiratory failure Plan: Secondary to underlying RVR with heart failure. The patient is improved however she continues to have dyspnea on exertion. Continue to monitor. She is not currently on any oxygen. As needed nebulizer treatments. Management of underlying condition. (2) Atrial fibrillation with RVR Plan: Patient's heart rate is now much improved today. At the bedside she is 103. Our goal is to be consistently at 110 or less. She is currently on metoprolol 25 mg twice daily. We will hold at this dose for now. Eliquis has been held for potential thoracentesis. (3) Pleural effusion Is this a current diagnosis for this admission?: YesPlan: Crackles are heard on auscultation. Repeat chest x-ray in the morning after further diuresis. No improvement we will likely have to send for thoracentesis. (4) Acute on chronic systolic heart failure Plan: Echocardiogram has been performed but not yet read. Finalized report. I suspect she will have some systolic dysfunction considering the fluid in her lungs. We will bump up diuresis to 40 mg twice a day. Another 24 hours of diuresis we will recheck a chest x-ray. Patient looks good at the moment. Maintain strict I's and O's. I have discussed this with the patient's nurse. (5) Alzheimer's dementia Qualifiers: Alzheimer's disease onset: unspecified onset Dementia behavioral disturbance: without behavioral disturbance Qualified Code(s): G30.9 - Alzheimer's disease, unspecified; F02.80 - Dementia in other diseases classified elsewhere without behavioral disturbance Is this a current diagnosis for this admission?: YesPlan: Stable - Time Time Spent with patient: 25-34 minutes - Inpatient Certification Based on my medical assessment, after consideration of the patient's comorbidities, presenting symptoms, or acuity I expect that the services needed warrant INPATIENT care.: Yes Medical Necessity: Need Close Monitoring Due to Risk of Patient Decompensation
[2017-03-18 14:44] LABS: ABSOLUTE EOSINOPHILS # (AUTO) 0.3 10^3/uL (0.0-0.6); ABSOLUTE LYMPHOCYTES (AUTO) 0.8 10^3/uL (0.5-4.7); ABSOLUTE MONOCYTES (AUTO) 0.6 10^3/uL (0.1-1.4); ABSOLUTE NEUT (AUTO) 3.8 10^3/uL (1.7-8.2); BASOPHILS % (AUTO) 0.6 % (0-2); EOSINOPHILS % (AUTO) 4.6 % (0-6); HEMATOCRIT 35.7 % (36.0-47.0); HEMOGLOBIN 11.7 g/dL (12.0-15.5); HGB HCT DIFFERENCE -0.6; LYMPHOCYTES % (AUTO) 13.9 % (13-45); MEAN CORPUSCULAR HEMOGLOBIN 33.3 pg (27.0-33.4); MEAN CORPUSCULAR HGB CONC 32.8 g/dL (32.0-36.0); MEAN CORPUSCULAR VOLUME 102 fl (80-97); MONOCYTES % (AUTO) 11.2 % (3-13); RED BLOOD COUNT 3.52 10^6/uL (3.72-5.28); RED CELL DISTRIBUTION WIDTH 13.8 % (11.5-14.0); SEGMENTED NEUTROPHILS % (AUTO) 69.7 % (42-78); WHITE BLOOD COUNT 5.5 10^3/uL (4.0-10.5)
--- NOTE | 2017-03-18 17:38 | XCELERA REPORT ---
[address] [address] Transthoracic Echocardiogram Report Name: FRANCOISE DANG Age: 81 yrs Gender: Female : 1935 Patient Status: Inpatient Patient Location: \S\15\S\A Study Date: 03/17/2017 01:51 PM Height: 62 in Weight: 108 lb BSA: 1.5 m2 Procedure: A two-dimensional transthoracic echocardiogram with color flow and Doppler was performed. Study Quality: Fair. Reason For Study: HEART FAILURE History: HEART FAILURE. Ordering Physician: SUMAYA OSHEA Performed By: Parul Lima Interpretation Summary The left ventricle is normal in size. There is normal left ventricular wall thickness. LV EF is 50% Left ventricular systolic function is normal. The left ventricular wall motion is normal. The right ventricle is normal in size and function. The left atrial size is normal. There is no evidence of mitral valve prolapse. There is no mitral valve stenosis. 2 jets of moderate MR. There is no tricuspid stenosis. There is no aortic valve stenosis There is a trace to mild amount of aortic regurgitation There is no LVOT obstruction. There is a mild to moderate amount of tricuspid regurgitation There is moderate pulmonary hypertension by echo RVSP is 51 mm of Hg , with RA mean of 10. There is no pulmonic valvular stenosis. There is a moderate amount of pulmonic regurgitation There is no pericardial effusion. Large left pleural effusion. MMode/2D Measurements \T\ Calculations RVDd: 2.3 cm LVIDd: 3.4 cm FS: 33.7 % Ao root diam: 2.3 cm IVSd: 0.83 cm LVIDs: 2.3 cm EDV(Teich): 48.0 ml LVPWd: 0.79 cm ESV(Teich): 17.5 ml Ao root area: 4.2 cm2 EF(Teich): 63.6 % LA dimension: 3.3 cm Doppler Measurements \T\ Calculations MV E max alfredo: MV P1/2t max alfredo: Ao V2 max: LV V1 max P.4 cm/sec 124.9 cm/sec 98.8 cm/sec 1.4 mmHg MV P1/2t: 37.7 msec Ao max PG: LV V1 max: 3.9 mmHg 59.2 cm/sec MVA(P1/2t): 5.8 cm2 MV dec slope: 969.6 cm/sec2 MV dec time: 0.12 sec PA V2 max: PI end-d alfredo: TR max alfredo: 65.2 cm/sec 145.2 cm/sec 318.2 cm/sec PA max P.7 mmHg TR max P.5 mmHg Left Ventricle The left ventricle is normal in size. There is normal left ventricular wall thickness. LV EF is 50%. Left ventricular systolic function is normal. LV diastolic function could not be adequately assessed due to atrial fibrilation. The left ventricular wall motion is normal. There is no thrombus. There is no ventricular septal defect visualized. Right Ventricle The right ventricle is normal in size and function. Atria The right atrium is normal. The left atrial size is normal. The interatrial septum is intact with no evidence for an atrial septal defect. Mitral Valve There is no evidence of mitral valve prolapse. There is no vegetation seen on the mitral valve. There is no mitral valve stenosis. 2 jets of moderate MR. Aortic Valve There is no aortic valvular vegetation. There is no aortic valve stenosis. There is no LVOT obstruction. There is a trace to mild amount of aortic regurgitation. Tricuspid Valve There is no tricuspid stenosis. There is a mild to moderate amount of tricuspid regurgitation. There is moderate pulmonary hypertension by echo. RVSP is 51 mm of Hg , with RA mean of 10. Pulmonic Valve There is no pulmonic valvular stenosis. There is a moderate amount of pulmonic regurgitation. Great Vessels The aortic root is normal size. Effusions There is no pericardial effusion. Large left pleural effusion. : SUMAYA OSHEA > Leila Ness
[2017-03-18] MEDS: ATORVASTATIN CALCIUM 40 MG TABLET PO SCH (21:10)
[2017-03-18] MEDS: FUROSEMIDE INJ/PF 40 MG/4 ML SDV IV SCH (21:10)
[2017-03-19] MEDS: LEVALBUTEROL HCL NEB 0.63 MG/3 ML AMPUL NEB SCH ×5 (04:37→20:18)
[2017-03-19 05:41] LABS: ANION GAP 11 (5-19); BLOOD UREA NITROGEN 16 mg/dL (7-20); CALCIUM 9.1 mg/dL (8.4-10.2); CARBON DIOXIDE 34 mmol/L (22-30); CHLORIDE 96 mmol/L (98-107); CREATININE RESULT 0.97 mg/dL (0.52-1.25); GLUCOSE 93 mg/dL (75-110); MAGNESIUM 1.7 mg/dL (1.6-2.3); POTASSIUM 3.2 mmol/L (3.6-5.0); SODIUM 140.8 mmol/L (137-145)
[2017-03-19] MEDS ORDERED: POTASSIUM CHLORIDE 10 MEQ TABLET.SA PO ONE (07:39)
[2017-03-19] MEDS ORDERED: MAGNESIUM OXIDE 400 MG TABLET PO ONE (07:40)
--- NOTE | 2017-03-19 08:43 | RADIOLOGY REPORT (SQ) ---
EXAM DESCRIPTION: CHEST PA/LAT COMPLETED DATE/TIME: 03/19/2017 8:24 am REASON FOR STUDY: pleural effusion COMPARISON: 03/16/2017 EXAM PARAMETERS: NUMBER OF VIEWS: two views TECHNIQUE: Digital Frontal and Lateral radiographic views of the chest acquired. RADIATION DOSE: NA LIMITATIONS: none FINDINGS: LUNGS AND PLEURA: The previously described small bilateral pleural effusions are again dasia ntified. I cannot exclude some associated atelectasis or infiltrate in the lung bases. Increased de nsity is identified extending into the left upper lung field which could represent atelectatic change s or a developing infiltrate. MEDIASTINUM AND HILAR STRUCTURES: No masses or contour abnormalities. HEART AND VASCULAR STRUCTURES: Heart normal size. No evidence for failure. BONES: No acute findings. HARDWARE: None in the chest. OTHER: No other significant finding. IMPRESSION: Small bilateral pleural effusions as noted above and cannot exclude some associated atel ectasis or infiltrate in the lung bases. Increasing density extending into the left upper lung field which could represent atelectatic changes or a developing infiltrate. TECHNICAL DOCUMENTATION: JOB ID: [id number] [employer]- All Rights Reserved
[2017-03-19] MEDS: FUROSEMIDE INJ/PF 40 MG/4 ML SDV IV SCH ×2 (09:12→21:26)
[2017-03-19] MEDS: CITALOPRAM HYDROBROMIDE 20 MG TABLET PO SCH (09:12)
[2017-03-19] MEDS: LISINOPRIL 5 MG TABLET PO SCH (09:12)
[2017-03-19] MEDS: METOPROLOL SUCCINATE 25 MG TAB.SR.24H PO SCH ×2 (09:12→21:26)
[2017-03-19] MEDS: MEMANTINE HCL 10 MG TABLET PO SCH ×2 (09:12→21:26)
[2017-03-19] MEDS: RIVASTIGMINE TARTRATE 1.5 MG CAPSULE PO SCH ×2 (09:13→16:52)
--- NOTE | 2017-03-19 13:09 | PDOC PROGRESS REPORT ---
Subjective Progress Note for:: 03/19/17 Subjective:: Follow-up visit for A. fib with RVR resulting in acute heart failure. Patient was seen at the bedside along with her daughter. The patient feels better today she thinks that her breathing is easier today. She is less short of breath walking to the bathroom. She would really like to go home. She put out 600 mL of fluid overnight. I do note that she has taken an over 2 L of fluid by mouth. She denies any current chest discomfort. Physical Exam Vital Signs: Temp Pulse Resp BP Pulse Ox 97.7 F 86 17 127/81 H 97 03/19/17 07:20 03/19/17 09:04 03/19/17 09:04 03/19/17 07:20 03/19/17 07:20 Intake & Output 03/18/17 03/19/17 03/20/17 06:59 06:59 06:59 Intake Total 474 2149 Output Total 2750 Balance 474 -601 Weight 47.7 kg 47.7 kg General: This is a well-developed and nourished appearing elderly frail- appearing white female resting in bed currently in no acute distress Heart: Irregular rate and rhythm. On the monitor the patient is in obvious A. fib with a heart rate in the 90s. No gallops or rubs. 2/6 systolic ejection murmur. Lungs: Bibasilar crackles at the bases bilaterally. Much improved on the right. Worse today on the left Abdomen: Soft, nontender, nondistended. Extremities: No clubbing cyanosis or edema. Peripheral pulses Neurologic: She is awake, and alert. CN are grossly intact Results Laboratory Results: 03/18/17 14:38 03/19/17 04:13 03/18/17 03/19/17 14:38 04:13 WBC 5.5 RBC 3.52 L Hgb 11.7 L Hct 35.7 L MCV 102 H MCH 33.3 MCHC 32.8 RDW 13.8 Plt Count 188 Seg Neutrophils % 69.7 Lymphocytes % 13.9 Monocytes % 11.2 Eosinophils % 4.6 Basophils % 0.6 Absolute Neutrophils 3.8 Absolute Lymphocytes 0.8 Absolute Monocytes 0.6 Absolute Eosinophils 0.3 Absolute Basophils 0.0 Sodium 140.8 Potassium 3.2 L Chloride 96 L Carbon Dioxide 34 H Anion Gap 11 BUN 16 Creatinine 0.97 Est GFR ( Amer) > 60 Est GFR (Non-Af Amer) 55 L Glucose 93 Calcium 9.1 Magnesium 1.7 03/17/17 03/17/17 03/17/17 16:53 16:53 20:00 Creatine Kinase 68 CK-MB (CK-2) 1.41 Troponin I < 0.012 NT-Pro-B Natriuret Pep 03/18/17 03/18/17 03/19/17 02:00 02:00 04:13 Creatine Kinase 52 CK-MB (CK-2) 1.13 Troponin I < 0.012 NT-Pro-B Natriuret Pep 3350 H 2340 H Impressions: Chest X-Ray 03/19/17 08:00 IMPRESSION: Small bilateral pleural effusions as noted above and cannot exclude some associated atelectasis or infiltrate in the lung bases. Increasing density extending into the left upper lung field which could represent atelectatic changes or a developing infiltrate. Assessment & Plan - Diagnosis (1) Acute hypoxemic respiratory failure Is this a current diagnosis for this admission?: YesPlan: Secondary to underlying RVR with heart failure. The patient is improved. Chest x-ray this morning shows small pleural effusion. She is currently off of oxygen. (2) Atrial fibrillation with RVR Is this a current diagnosis for this admission?: YesPlan: Patient's heart rate is now much improved today. Our goal is to be consistently at 110 or less. She is currently on metoprolol 25 mg twice daily. We will hold at this dose for now. Eliquis has been held for potential thoracentesis. (3) Pleural effusion Is this a current diagnosis for this admission?: YesPlan: Crackles are heard on auscultation. Continue diuresis. Patient put out another 600 mL net overnight. Chest x-ray shows small pleural effusion. (4) Acute on chronic systolic heart failure Plan: Echocardiogram has been performed and shows an EF of 50%. Moderate tricuspid regurgitation and moderate pulmonary hypertension. [place] 1500 cc fluid restriction. Also 2 g or less sodium diet along with strict I's and O's. Reevaluate in the morning. (5) Alzheimer's dementia Qualifiers: Alzheimer's disease onset: unspecified onset Dementia behavioral disturbance: without behavioral disturbance Qualified Code(s): G30.9 - Alzheimer's disease, unspecified; F02.80 - Dementia in other diseases classified elsewhere without behavioral disturbance Is this a current diagnosis for this admission?: YesPlan: Stable - Time Time Spent with patient: 25-34 minutes Anticipated discharge: Home - Inpatient Certification Medical Necessity: Need Close Monitoring Due to Risk of Patient Decompensation
[2017-03-19] MEDS: NITROGLYCERIN 2.5 MG (0.1 MG/HR) PATCH.TD24 TD SCH (16:53)
[2017-03-19] MEDS: ATORVASTATIN CALCIUM 40 MG TABLET PO SCH (21:26)
[2017-03-20 06:37] LABS: ANION GAP 12 (5-19); BLOOD UREA NITROGEN 17 mg/dL (7-20); CALCIUM 9.4 mg/dL (8.4-10.2); CARBON DIOXIDE 32 mmol/L (22-30); CHLORIDE 96 mmol/L (98-107); CREATININE RESULT 1.03 mg/dL (0.52-1.25); GLUCOSE 89 mg/dL (75-110); POTASSIUM 3.7 mmol/L (3.6-5.0); SODIUM 139.5 mmol/L (137-145)
[2017-03-20] MEDS: LEVALBUTEROL HCL NEB 0.63 MG/3 ML AMPUL NEB SCH ×3 (08:30→20:00)
[2017-03-20] MEDS: FUROSEMIDE INJ/PF 40 MG/4 ML SDV IV SCH ×2 (10:02→21:07)
[2017-03-20] MEDS: LISINOPRIL 5 MG TABLET PO SCH (10:02)
[2017-03-20] MEDS: RIVASTIGMINE TARTRATE 1.5 MG CAPSULE PO SCH ×2 (10:03→17:40)
[2017-03-20] MEDS: MEMANTINE HCL 10 MG TABLET PO SCH ×2 (10:04→20:57)
[2017-03-20] MEDS: CITALOPRAM HYDROBROMIDE 20 MG TABLET PO SCH (10:05)
[2017-03-20] MEDS: METOPROLOL SUCCINATE 25 MG TAB.SR.24H PO SCH ×2 (10:05→21:07)
--- NOTE | 2017-03-20 11:55 | PDOC PROGRESS REPORT ---
Subjective Progress Note for:: 03/20/17 Subjective:: Follow-up visit for A. fib with RVR resulting in acute heart failure. Patient was seen at the bedside along with her two daughters. The patient feels much better today she thinks that her breathing is easier today. She is less short of breath walking to the bathroom. She would really like to go home. She put out 1000 mL of fluid overnight. Physical Exam Vital Signs: Temp Pulse Resp BP Pulse Ox 97.4 F 85 20 105/81 95 03/20/17 07:28 03/20/17 08:30 03/20/17 08:30 03/20/17 07:28 03/20/17 08:30 Intake & Output 03/19/17 03/20/17 03/21/17 06:59 06:59 06:59 Intake Total 2149 1085 Output Total 2750 2100 Balance -601 -1015 Weight 47.7 kg 48.1 kg General: This is a well-developed and nourished appearing elderly frail- appearing white female resting in bed currently in no acute distress Heart: Irregular rate and rhythm. On the monitor the patient is in obvious A. fib with a heart rate in the 90s. No gallops or rubs. 2/6 systolic ejection murmur. Lungs: Bibasilar crackles at the bases bilaterally. Much improved on the right. Worse today on the left Abdomen: Soft, nontender, nondistended. Extremities: No clubbing cyanosis or edema. Peripheral pulses Neurologic: She is awake, and alert. CN are grossly intact Results Laboratory Results: 03/18/17 14:38 03/20/17 05:03 03/20/17 05:03 Sodium 139.5 Potassium 3.7 Chloride 96 L Carbon Dioxide 32 H Anion Gap 12 BUN 17 Creatinine 1.03 Est GFR ( Amer) > 60 Est GFR (Non-Af Amer) 51 L Glucose 89 Calcium 9.4 Magnesium 2.0 03/17/17 03/17/17 03/17/17 16:53 16:53 20:00 Creatine Kinase 68 CK-MB (CK-2) 1.41 Troponin I < 0.012 NT-Pro-B Natriuret Pep 03/18/17 03/18/17 03/19/17 02:00 02:00 04:13 Creatine Kinase 52 CK-MB (CK-2) 1.13 Troponin I < 0.012 NT-Pro-B Natriuret Pep 3350 H 2340 H 03/20/17 05:03 Creatine Kinase CK-MB (CK-2) Troponin I NT-Pro-B Natriuret Pep 1540 H Impressions: Chest X-Ray 03/19/17 08:00 IMPRESSION: Small bilateral pleural effusions as noted above and cannot exclude some associated atelectasis or infiltrate in the lung bases. Increasing density extending into the left upper lung field which could represent atelectatic changes or a developing infiltrate. Assessment & Plan - Diagnosis (1) Acute hypoxemic respiratory failure Is this a current diagnosis for this admission?: YesPlan: Secondary to underlying RVR with heart failure. The patient is improved. She is off of oxygen and will need to be ambulated. (2) Atrial fibrillation with RVR Is this a current diagnosis for this admission?: YesPlan: Patient's heart rate is now much improved today. Our goal is to be consistently at 110 or less. She is currently on metoprolol 25 mg twice daily. Eliquis has been held for potential thoracentesis. Hopefully the patient will continue to do well and not require this. We will consider resumption of Eliquis tomorrow. (3) Pleural effusion Is this a current diagnosis for this admission?: YesPlan: The patient has less crackles on exam and sounds so much improved. Continue diuresis. Patient put out another 1000 mL net overnight. Chest x-ray shows small pleural effusion. Hopefully we can avoid a thoracentesis (4) Acute on chronic systolic heart failure Plan: Echocardiogram has been performed and shows an EF of 50%. Diastolic dysfunction could not be evaluated. Moderate tricuspid regurgitation and moderate pulmonary hypertension. Lagrange 1500 cc fluid restriction. Also 2 g or less sodium diet along with strict I's and O's. Reevaluate in the morning. (5) Alzheimer's dementia Qualifiers: Alzheimer's disease onset: unspecified onset Dementia behavioral disturbance: without behavioral disturbance Qualified Code(s): G30.9 - Alzheimer's disease, unspecified; F02.80 - Dementia in other diseases classified elsewhere without behavioral disturbance Is this a current diagnosis for this admission?: YesPlan: Stable - Time Time Spent with patient: 25-34 minutes - Inpatient Certification I certify that my determination is in accordance with my understanding of Medicare's requirements for reasonable and necessary INPATIENT services [42 CFR 412.3e].: Yes Medical Necessity: Need Close Monitoring Due to Risk of Patient Decompensation
[2017-03-20] MEDS: NITROGLYCERIN 2.5 MG (0.1 MG/HR) PATCH.TD24 TD SCH (13:26)
[2017-03-20] MEDS ORDERED: HYDRALAZINE HCL INJ/PF 20 MG/1 ML SDV IV PRN (14:45)
[2017-03-20] MEDS ORDERED: MAGNESIUM HYDROXIDE SUSP 30 ML UDCUP PO PRN (14:46)
[2017-03-20] MEDS ORDERED: ONDANSETRON HCL INJ/PF 4 MG/2 ML SDV IV PRN (14:47)
[2017-03-20] MEDS: ATORVASTATIN CALCIUM 40 MG TABLET PO SCH (20:58)
[2017-03-21 04:51] LABS: ABSOLUTE BASOPHILS # (AUTO) 0.1 10^3/uL (0.0-0.2); ABSOLUTE EOSINOPHILS # (AUTO) 0.2 10^3/uL (0.0-0.6); ABSOLUTE LYMPHOCYTES (AUTO) 1.5 10^3/uL (0.5-4.7); ABSOLUTE MONOCYTES (AUTO) 0.8 10^3/uL (0.1-1.4); BASOPHILS % (AUTO) 0.8 % (0-2); EOSINOPHILS % (AUTO) 3.7 % (0-6); HEMATOCRIT 36.1 % (36.0-47.0); HEMOGLOBIN 11.9 g/dL (12.0-15.5); HGB HCT DIFFERENCE -0.4; LYMPHOCYTES % (AUTO) 22.1 % (13-45); MEAN CORPUSCULAR HEMOGLOBIN 33.5 pg (27.0-33.4); MEAN CORPUSCULAR VOLUME 102 fl (80-97); MONOCYTES % (AUTO) 12.2 % (3-13); RED BLOOD COUNT 3.56 10^6/uL (3.72-5.28); RED CELL DISTRIBUTION WIDTH 14.1 % (11.5-14.0); SEGMENTED NEUTROPHILS % (AUTO) 61.2 % (42-78); WHITE BLOOD COUNT 6.6 10^3/uL (4.0-10.5)
[2017-03-21 05:18] LABS: ANION GAP 10 (5-19); BLOOD UREA NITROGEN 22 mg/dL (7-20); CALCIUM 9.5 mg/dL (8.4-10.2); CARBON DIOXIDE 35 mmol/L (22-30); CHLORIDE 95 mmol/L (98-107); CREATININE RESULT 1.08 mg/dL (0.52-1.25); GLUCOSE 87 mg/dL (75-110); MAGNESIUM 2.1 mg/dL (1.6-2.3); POTASSIUM 3.6 mmol/L (3.6-5.0); SODIUM 139.7 mmol/L (137-145)
[2017-03-21] MEDS: LEVALBUTEROL HCL NEB 0.63 MG/3 ML AMPUL NEB SCH ×2 (08:45→14:29)
--- NOTE | 2017-03-21 10:22 | RADIOLOGY REPORT (SQ) ---
EXAM DESCRIPTION: CHEST PA/LAT COMPLETED DATE/TIME: 03/21/2017 9:58 am REASON FOR STUDY: moderate pleural effusion on ct COMPARISON: 03/19/2017 EXAM PARAMETERS: NUMBER OF VIEWS: two views TECHNIQUE: Digital Frontal and Lateral radiographic views of the chest acquired. RADIATION DOSE: NA LIMITATIONS: none FINDINGS: LUNGS AND PLEURA: The previously described small bilateral pleural effusions appear slight ly decreased in size as compared to the previous study. Increased density is identified extending in to the right upper lung field which could represent atelectatic changes or a developing infiltrate. MEDIASTINUM AND HILAR STRUCTURES: No masses or contour abnormalities. HEART AND VASCULAR STRUCTURES: Heart normal size. No evidence for failure. BONES: No acute findings. HARDWARE: None in the chest. OTHER: No other significant finding. IMPRESSION: The previously described small bilateral pleural effusions appear slightly decreased in size as compared to the previous study. There is increased density extending into the right upper marion ng field which could represent atelectatic changes or developing infiltrate. Other findings as noted above TECHNICAL DOCUMENTATION: JOB ID: [id number]- All Rights Reserved
[2017-03-21] MEDS: METOPROLOL SUCCINATE 25 MG TAB.SR.24H PO SCH ×2 (10:57→21:08)
[2017-03-21] MEDS: RIVASTIGMINE TARTRATE 1.5 MG CAPSULE PO SCH ×2 (10:58→17:55)
[2017-03-21] MEDS: MEMANTINE HCL 10 MG TABLET PO SCH ×2 (10:58→21:07)
[2017-03-21] MEDS: LISINOPRIL 5 MG TABLET PO SCH (10:58)
[2017-03-21] MEDS: FUROSEMIDE 20 MG TABLET PO SCH ×2 (10:59→17:55)
[2017-03-21] MEDS: CITALOPRAM HYDROBROMIDE 20 MG TABLET PO SCH (10:59)
--- NOTE | 2017-03-21 11:41 | PDOC PROGRESS REPORT ---
Subjective Progress Note for:: 03/21/17 Subjective:: Follow-up visit for A. fib with RVR resulting in acute heart failure. Patient was seen at the bedside along with her two daughters. The patient feels much better today she thinks that her breathing is easier today. She is less short of breath walking to the bathroom. She would really like to go home. She put out 940 mL of fluid overnight. In addition, the patient will have a low blood pressure overnight systolic to 84. Her Lopressor as well as Lasix was held. Her blood pressure did come back up on its own. Physical Exam Vital Signs: Temp Pulse Resp BP Pulse Ox 97.4 F 85 17 117/76 94 03/21/17 07:19 03/21/17 08:45 03/21/17 08:45 03/21/17 07:19 03/21/17 07:19 Intake & Output 03/20/17 03/21/17 03/22/17 06:59 06:59 06:59 Intake Total 1085 560 Output Total 2100 1500 Balance -1015 -940 Weight 48.1 kg 45.2 kg General: This is a well-developed and nourished appearing elderly frail- appearing white female resting in bed currently in no acute distress Heart: Irregular rate and rhythm. On the monitor the patient is in obvious A. fib with a heart rate in the 90s. No gallops or rubs. 2/6 systolic ejection murmur. Lungs: Clear to auscultation with rare crackles bilaterally. Abdomen: Soft, nontender, nondistended. Extremities: No clubbing cyanosis or edema. Peripheral pulses Neurologic: She is awake, and alert. CN are grossly intact Results Laboratory Results: 03/21/17 03:52 03/21/17 03:52 03/21/17 03/21/17 03:52 03:52 WBC 6.6 RBC 3.56 L Hgb 11.9 L Hct 36.1 MCV 102 H MCH 33.5 H MCHC 33.0 RDW 14.1 H Plt Count 183 Seg Neutrophils % 61.2 Lymphocytes % 22.1 Monocytes % 12.2 Eosinophils % 3.7 Basophils % 0.8 Absolute Neutrophils 4.0 Absolute Lymphocytes 1.5 Absolute Monocytes 0.8 Absolute Eosinophils 0.2 Absolute Basophils 0.1 Sodium 139.7 Potassium 3.6 Chloride 95 L Carbon Dioxide 35 H Anion Gap 10 BUN 22 H Creatinine 1.08 Est GFR ( Amer) 59 L Est GFR (Non-Af Amer) 49 L Glucose 87 Calcium 9.5 Magnesium 2.1 03/17/17 03/17/17 03/17/17 16:53 16:53 20:00 Creatine Kinase 68 CK-MB (CK-2) 1.41 Troponin I < 0.012 NT-Pro-B Natriuret Pep 03/18/17 03/18/17 03/19/17 02:00 02:00 04:13 Creatine Kinase 52 CK-MB (CK-2) 1.13 Troponin I < 0.012 NT-Pro-B Natriuret Pep 3350 H 2340 H 03/20/17 03/21/17 05:03 03:52 Creatine Kinase CK-MB (CK-2) Troponin I NT-Pro-B Natriuret Pep 1540 H 1140 H Impressions: Chest X-Ray 03/21/17 00:00 IMPRESSION: The previously described small bilateral pleural effusions appear slightly decreased in size as compared to the previous study. There is increased density extending into the right upper lung field which could represent atelectatic changes or developing infiltrate. Other findings as noted above Assessment & Plan - Diagnosis (1) Acute hypoxemic respiratory failure Is this a current diagnosis for this admission?: YesPlan: Secondary to underlying RVR with heart failure. This is resolved (2) Atrial fibrillation with RVR Is this a current diagnosis for this admission?: YesPlan: Patient's heart rate is now much improved today. Our goal is to be consistently at 110 or less. She is currently on metoprolol 25 mg twice daily. Eliquis has been held for potential thoracentesis. I do not think thoracentesis will be necessary at this point. Therefore we will resume Eliquis today. (3) Pleural effusion Is this a current diagnosis for this admission?: YesPlan: The patient has no crackles on exam. She is much improved. Repeat chest x-ray shows continued diminution in the small pleural effusions that are now there. It also suggests the patient may have atelectasis versus infiltrate. given that the patient has no fever, chills, cough, sputum production, I do not suspect underlying pneumonia. I will prescribe incentive spirometer however. (4) Acute on chronic systolic heart failure Plan: Echocardiogram has been performed and shows an EF of 50%. Diastolic dysfunction could not be evaluated due to atrial fibrillation. Moderate tricuspid regurgitation and moderate pulmonary hypertension. Increase fluid restriction is 1750 fluid restriction. Also 2 g or less sodium diet along with strict I's and O's. I will also decrease her Lasix down to 20 twice a day. Hopefully she will continue to do well with this. She is tolerating Lasix at this point. Given that she had a decrease in her blood pressure I am going to liberalize her fluids a bit as above as well as decrease Lasix dose. If she continues to have these issues we may need to also reduce her beta-nitza and see how she does. (5) Alzheimer's dementia Qualifiers: Alzheimer's disease onset: unspecified onset Dementia behavioral disturbance: without behavioral disturbance Qualified Code(s): G30.9 - Alzheimer's disease, unspecified; F02.80 - Dementia in other diseases classified elsewhere without behavioral disturbance Is this a current diagnosis for this admission?: YesPlan: Stable - Time Time Spent with patient: 15-24 minutes Anticipated discharge: Home Within: within 24 hours - Inpatient Certification Medical Necessity: Need Close Monitoring Due to Risk of Patient Decompensation
[2017-03-21] MEDS ORDERED: APIXABAN 2.5 MG TABLET PO ONE (12:00)
[2017-03-21] MEDS: NITROGLYCERIN 2.5 MG (0.1 MG/HR) PATCH.TD24 TD SCH (13:42)
[2017-03-21] MEDS ORDERED: LEVALBUTEROL HCL NEB 0.63 MG/3 ML AMPUL NEB PRN (14:35)
[2017-03-21] MEDS: APIXABAN 2.5 MG TABLET PO SCH (21:07)
[2017-03-21] MEDS: ATORVASTATIN CALCIUM 40 MG TABLET PO SCH (21:07)
[2017-03-22 05:39] LABS: ANION GAP 10 (5-19); BLOOD UREA NITROGEN 23 mg/dL (7-20); CALCIUM 9.5 mg/dL (8.4-10.2); CARBON DIOXIDE 32 mmol/L (22-30); CHLORIDE 98 mmol/L (98-107); CREATININE RESULT 1.09 mg/dL (0.52-1.25); GLUCOSE 85 mg/dL (75-110); MAGNESIUM 2.2 mg/dL (1.6-2.3); POTASSIUM 3.9 mmol/L (3.6-5.0); SODIUM 140.1 mmol/L (137-145)
[2017-03-22] MEDS ORDERED: LISINOPRIL 5 MG TABLET PO SCH (10:00)
[2017-03-22] MEDS: APIXABAN 2.5 MG TABLET PO SCH (10:14)
[2017-03-22] MEDS: FUROSEMIDE 20 MG TABLET PO SCH (10:14)
[2017-03-22] MEDS: CITALOPRAM HYDROBROMIDE 20 MG TABLET PO SCH (10:14)
[2017-03-22] MEDS: RIVASTIGMINE TARTRATE 1.5 MG CAPSULE PO SCH (10:17)
[2017-03-22] MEDS: METOPROLOL SUCCINATE 25 MG TAB.SR.24H PO SCH (10:17)
[2017-03-22] MEDS: MEMANTINE HCL 10 MG TABLET PO SCH (10:17)
--- NOTE | 2017-03-22 12:00 | PDOC DISCHARGE SUMMARY ---
General - Admit/Disc Date/PCP Admission Date/Primary Care Provider: 03/17/17 11:48 Discharge Date: 03/22/17 - Discharge Diagnosis (1) Acute hypoxemic respiratory failure Is this a current diagnosis for this admission?: YesSummary: Resolved with diuresis. O2 sat ambulating were in the low 90s. (2) Atrial fibrillation with RVR Is this a current diagnosis for this admission?: YesSummary: The patient was started on metoprolol XL and this should be continued as an outpatient for rate control. In addition, the patient was also started on Eliquis for anticoagulation. This should be continued as an outpatient as well. The patient will need follow-up with her primary care physician within 1 week. (3) Pleural effusion Is this a current diagnosis for this admission?: YesSummary: Pleural effusion felt to be secondary to A. fib and resultant heart failure with pulmonary edema. Patient was aggressively diuresed while here. Pleural fluid did decrease on chest x-ray. She will need to follow-up with her PCP in 1 week. (4) Acute on chronic systolic heart failure Summary: Patient was started on Lasix 40 mg twice a day. This was decreased to 20 mg twice a day. She was also started on beta-nitza and continued on low-dose LUIZ inhibitor. She will need to follow-up with her primary care physician in 1 week. (5) Alzheimer's dementia Is this a current diagnosis for this admission?: YesSummary: Continue home medications. - Additional Information Resuscitation Status: Full Code Discharge Activity: Activity As Tolerated, Balance Activity w/Rest, Weigh Daily Home Medications: Albuterol Sulfate [Proair HFA] 2 puff IH Q6HP PRN 03/17/17 Apixaban [Eliquis 2.5 mg Tablet] 2.5 mg PO Q12 03/17/17 Atorvastatin Calcium [Lipitor 40 mg Tablet] 40 mg PO DAILY 03/17/17 Citalopram Hydrobromide [Celexa 20 mg Tablet] 20 mg PO DAILY 03/17/17 Memantine HCl [Namenda 10 mg Tablet] 10 mg PO Q12 03/17/17 Rivastigmine Tartrate [Rivastigmine] 4.5 mg PO BID 03/17/17 Furosemide [Lasix 20 mg Tablet] 20 mg PO BID #60 tablet 03/22/17 Lisinopril [Prinivil 5 mg Tablet] 5 mg PO DAILY #30 tablet 03/22/17 Metoprolol Succinate 25 mg PO DAILY #30 tab.er.24h 03/22/17 History of Present Illness History of Present Illness: HPI as per admitting physician: History of Present Illness Admission Date/PCP: 03/17/17 11:48 Patient complains of: SOA for 2days History of Present Illness: FRANCOISE DANG is a 81 year old female with Alzheimer's Dementia and chronic afib, among other things, presents to the ED for the second day in a row with progressive SOA and rapid HR. she had been in NSR until a couple of weeks ago when she slipped back into afib and was changed from ACEi to Bystolic by her PCP in [place] to try to regain rate control but with only minimal success it would seem. Part of the problem is that she splits her time between a daughter here locally and one in [place] with primary MDs and cardiologists in both places until yesterday when she was seen in our ED, referred for admission but refused and left AMA electing to see her MD's in [place] instead. Unfortunately they told her she was no longer a patient and needed to return to the ED for treatment or return to [place]. So on re-evaluation she remains in Afib with mild RVR and found to have mod R>L pleural effusions with compressive atelectasis accounting for RA sats with minimal exertion of <88% and once again referred for admission. She denies chest pain but describes a heaviness in her chest "like I can't get enough air in when I need it". she denies palpitations, wheezing, cough with phlegm, sick contacts, n/v/d, melena, orthopnea or PND. Hospital Course Hospital Course: The patient was admitted to the hospital and started on rate control with metoprolol succinate 25 mg p.o. twice daily. She was also placed on a nitroglycerin patch and started on furosemide at 20 mg twice a day IV. During the first night the patient did not put out a net negative amount of urine. She remained short of breath and requiring oxygen. Her Lasix was bumped up to 40 twice a day IV. Her heart rate did eventually come down nicely and was able to be maintained consistently under 110 with an average pulse rate in the 90s. CT of the chest showed pleural effusion with possible atelectasis versus infiltrate. The patient never had an elevated white count during her stay here nor did she ever have a fever or development of cough or sputum production. It was felt that she is compressive atelectasis, moderate-sized pleural effusion on the left and small pleural effusion on the right. After several more days of diuresis the patient began to feel better and was able to be weaned off of oxygen. She put out a total of 2.5 L over the course of 3 days. She was able to ambulate the halls with O2 sats in the low 90s. Repeat chest x-ray showed decreased pleural effusion considered to be small by the time of discharge. She did receive a cardiac echo while she was here which showed a low normal EF of 50%. Diastolic dysfunction could not be appropriately determined secondary to atrial fibrillation. She had moderate tricuspid regurgitation. Prior to discharge, the patient did have low blood pressures in the evening. Therefore her metoprolol is reduced down to once a day and her nitroglycerin patch was eventually removed. She was placed on fluid restriction initially at 1500 cc per day and bumped up to 1750 a day prior to discharge. She maintains a low- sodium diet while here. Ultimately her Lasix had to be changed to 20 mg twice a day. She was switched to p.o. at this dose and tolerated it well. While here the patient did meet with a physical therapist and was able to ambulate well. Her plans are to return to [place] and follow-up with her primary physician there. She spends half her time in [place] and the other half down here [place]. The patient is currently stable and ready for discharge. Physical Exam Vital Signs: Temp Pulse Resp BP Pulse Ox 97.8 F 82 12 125/82 98 03/22/17 11:36 03/22/17 11:36 03/22/17 11:36 03/22/17 11:36 03/22/17 11:36 Intake & Output 03/21/17 03/22/17 03/23/17 06:59 06:59 06:59 Intake Total 560 919 Output Total 1500 300 Balance -940 619 Weight 45.2 kg 45.7 kg General: This is a well-developed and nourished appearing elderly frail- appearing white female resting in bed currently in no acute distress Heart: Irregular rate and rhythm. On the monitor the patient is in obvious A. fib with a heart rate in the 90s. No gallops or rubs. 2/6 systolic ejection murmur. Lungs: Clear to auscultation with rare crackles bilaterally. She has equal rise and fall of the chest. Abdomen: Soft, nontender, nondistended. Extremities: No clubbing cyanosis or edema. Peripheral pulses Neurologic: She is awake, and alert. CN are grossly intact Results Laboratory Results: 03/21/17 03:52 03/22/17 04:14 03/22/17 04:14 Sodium 140.1 Potassium 3.9 Chloride 98 Carbon Dioxide 32 H Anion Gap 10 BUN 23 H Creatinine 1.09 Est GFR ( Amer) 58 L Est GFR (Non-Af Amer) 48 L Glucose 85 Calcium 9.5 Magnesium 2.2 03/17/17 03/17/17 03/17/17 16:53 16:53 20:00 Creatine Kinase 68 CK-MB (CK-2) 1.41 Troponin I < 0.012 NT-Pro-B Natriuret Pep 03/18/17 03/18/17 03/19/17 02:00 02:00 04:13 Creatine Kinase 52 CK-MB (CK-2) 1.13 Troponin I < 0.012 NT-Pro-B Natriuret Pep 3350 H 2340 H 03/20/17 03/21/17 03/22/17 05:03 03:52 04:14 Creatine Kinase CK-MB (CK-2) Troponin I NT-Pro-B Natriuret Pep 1540 H 1140 H 1450 H Impressions: Chest X-Ray 03/21/17 00:00 IMPRESSION: The previously described small bilateral pleural effusions appear slightly decreased in size as compared to the previous study. There is increased density extending into the right upper lung field which could represent atelectatic changes or developing infiltrate. Other findings as noted above
[2017-03-22 12:47] VITALS: BP 110/72
== END 2017-03-22 12:45 | disposition home or self-care (01) | DRG 291 ==
LOC: ER 09:54 → EH 11:48 → UNDOADMIN 11:54 → 3N 16:23
PROVIDERS: ADMIT Internal Medicine; ATTEND Internal Medicine
PROC: 3E0F73Z Introduction of Anti-inflammatory into Respiratory Tract, Via Natural or Artificial Opening (ICD-10-PCS; principal; 2017-03-18)
DX: I11.0 Hypertensive heart disease with heart failure (principal); J96.01 Acute respiratory failure with hypoxia; I48.2 Chronic atrial fibrillation; I50.23 Acute on chronic systolic (congestive) heart failure; G30.9 Alzheimer's disease, unspecified; F02.80 Dementia in other diseases classified elsewhere, unspecified severity, without behavioral disturbance, psychotic disturbance, mood disturbance, and anxiety; I07.1 Rheumatic tricuspid insufficiency; I27.2 Other secondary pulmonary hypertension; Z79.899 Other long term (current) drug therapy; Z86.73 Personal history of transient ischemic attack (TIA), and cerebral infarction without residual deficits; Z88.0 Allergy status to penicillin; Z88.8 Allergy status to other drugs, medicaments and biological substances; Z87.891 Personal history of nicotine dependence; Z90.710 Acquired absence of both cervix and uterus; Z82.49 Family history of ischemic heart disease and other diseases of the circulatory system; E78.5 Hyperlipidemia, unspecified
CPT/HCPCS: 36415; 71010; 71020; 71275; 80048; 80053; 82550; 82553; 83690; 83735; 83880; 84443; 84484; 85025; 85379; 85610; 85730; 93005; 93010; 93306; 94640; 94799; 96374; 99285; G8978-GP; G8979-GP; G8980-GP; J1940; J3490; J7030; J7614